=== PATIENT | male | born 1940 | race Caucasian/White ===

== ENCOUNTER → 2018-09-08 14:24 | Outpatient (CLI) | payer MEDICARE, SELFPAY ==
--- NOTE | 2018-09-08 14:41 | RAD_ITS ---
STUDY: X-RAY - ABDOMEN/PELVIS REASON FOR EXAM: Male, 78 years old. Incontinence TECHNIQUE: Two AP supine views of the abdomen and pelvis. COMPARISON: None. FINDINGS: Normal visualized lung bases. There is an unremarkable bowel gas pattern. There is no demonstrated free abdominal air. The visualized liver, spleen and kidneys are grossly normal in size and morphology. Normal soft tissue structures. There are diffuse degenerative changes of the visualized lumbar spine, and pelvis. RAD/Abdomen Single View IMPRESSION: No acute findings Electronically Signed: Evangelista Atkinson MD at 16:17 EST , Service support ,
[2018-09-08 15:43] LABS: Absolute Lymphocyte Count 1.81 X10^3/ul (0.83-4.51); Absolute Neutrophil Count 4.5 X10^3/uL (2.0-7.7); Basophil# 0.06 X10^3/uL; Basophil% 0.9 % (0-1); Eosinophil# 0.14 X10^3/uL; Hematocrit 44.2 % (40-54); Hemoglobin 14.7 g/dl (13.0-16.5); Lymphocyte # 1.81 X10^3/ul (4.0); Mean Corp Hgb Conc 33.3 g/gl (32-36); Mean Corpuscular Hgb 31.1 pg (27.0-32.0); Mean Corpuscular Volume 93.4 fL (80-94); Mean Platelet Vol. 9.5 fl (6.2-12.0); Monocyte# 0.39 X10^3/uL; Monocyte% 5.6 % (0-10); Neutrophil # 4.54 X10^3/uL (2.7-7.7); Neutrophil % 65.2 % (47-70); Platelet Count 264 K/mm3 (150-450); RBC Distribution Width CV 13.6 % (11.6-14.6); RBC Distribution Width SD 44.9 fl (35.1-43.9); Red Blood Count 4.73 M/mm3 (4.6-6.2)
[2018-09-08 15:52] LABS: POSITIVE COUNT NO; POSITIVE DIFFERENTIAL NO; POSITIVE MORPHOLOGY NO
[2018-09-08 16:03] LABS: ALB/GLOB Ratio 0.8 RATIO (0.9-2.4); AST(SGOT) 24 U/L (15-37); Alanine Aminotransfer ALT/SGPT 23 U/L (16-61); Albumin, Serum 3.3 g/dL (3.2-5.0); Alkaline Phosphatase 128 U/L (45-117); Anion Gap 8 (5-15); BUN 8 mg/dL (7-18); BUN/Creat Ratio 7.5 RATIO (10-20); Calcium,Total 8.4 mg/dL (8.5-10.1); Chloride 105 mmol/L (98-107); Creatinine, Serum 1.07 mg/dL (0.70-1.30); EST Glomerular Filtration Rate 71 mL/min (>60); Est Glom Filt Rate - Afr Amer 86 mL/min (>60); Globulin 4.3 g/dL (2.2-4.2); Glucose 84 mg/dL (74-106); Potassium 3.9 mmol/L (3.5-5.1); Protein, Total 7.6 g/dL (6.4-8.2); Sodium Level 141 mmol/L (136-145); Thyroid Stim Hormone (TSH) 3.64 uIU/mL (0.358-3.74)
== END ==
LOC: POLAB3 14:31 → RAD 14:40
PROVIDERS: Family Provider Family Medicine Geriatric Medicine; PCP Family Medicine Geriatric Medicine; Referring Provider Family Medicine Geriatric Medicine; Visit Provider Family Medicine Geriatric Medicine
DX: Z00.00 Encounter for general adult medical examination without abnormal findings (principal); R53.83 Other fatigue; R15.9 Full incontinence of feces
CPT/HCPCS: 36415; 74018; 80053; 84443; 85025

== ENCOUNTER 2018-12-04 08:41 | Inpatient (IN) | payer MEDICARE, SELFPAY ==
[2018-12-04] VITALS (7 sets, daily range): BP systolic 126–169; BP diastolic 68–98; PULSE 63–88; RESP 16–20; TEMP 36.4–37.4; O2SAT 95–99; BMI 24.1; BMI 23.0
--- NOTE | 2018-12-04 08:54 | RAD_ITS ---
STUDY: X-RAY CHEST REASON FOR EXAM: Male, 78 years old. Fall, hip fracture, preop TECHNIQUE: AP COMPARISON: None. FINDINGS: EKG leads project over the chest. Pulmonary underexpansion with prominent interstitial lung markings and central pulmonary vessels. No consolidating air space process. There is no demonstrated pleural abnormality. There is mild cardiac enlargement. Normal mediastinum and britta. Prominent central pulmonary vessels may be artifactual. There is atherosclerotic calcification of the aortic arch with tortuosity. No acute bony process. There is no demonstrated abnormality of the visualized soft tissue structures of the upper abdomen. RAD/Chest 1 View (Portable) IMPRESSION: 1. No airspace consolidation or pleural effusion. 2. Hypoinflation with mild basilar atelectasis. Vascular congestion versus artifact of portable technique/hypoinflation. Electronically Signed: German Montemayor MD at 10:11 EST , Service support ,
--- NOTE | 2018-12-04 08:55 | EKG12_ITS ---
Test Reason : FALL Blood Pressure : / mmHG Vent. Rate : 069 BPM Atrial Rate : 069 BPM P-R Int : 146 ms QRS Dur : 148 ms QT Int : 442 ms P-R-T Axes : 012 008 002 degrees QTc Int : 473 ms Normal sinus rhythm Right bundle branch block Cannot rule out Inferior infarct , age undetermined Abnormal ECG Confirmed by WES PINTO, NARGIS ([id number]), school photograph editor ANISHA TOVAR ([id number]) on 12/09/2018 9:06:53 AM Referred By: NABEEL Confirmed By:NARGIS HARVEY MD
--- NOTE | 2018-12-04 08:56 | RAD_ITS ---
STUDY: X-RAY - RIGHT HIP REASON FOR EXAM: Male, 78 years old. Fall today, right hip deformity TECHNIQUE: 2 views of the hip. AP pelvis COMPARISON: None. FINDINGS: There are atherosclerotic vascular calcifications. A displaced intertrochanteric fracture identified with approximately one shaft's width displacement anteriorly of the distal fragment in relation to the proximal fragment best seen on crosstable lateral view. There is varus deformity. Normal acetabulum. There is moderate articular joint space narrowing. The pelvic ring is intact without evidence of fracture. Degenerative changes of the left hip noted. There are also degenerative changes of the sacroiliac joints and lower lumbar spine. RAD/HIP, UNI W/ Pelvis 2-3 Views IMPRESSION: Right intratrochanteric fracture with displacement and varus deformity. Electronically Signed: German Montemayor MD at 10:13 EST , Service support ,
[2018-12-04 09:14] LABS: Absolute Lymphocyte Count 1.15 X10^3/ul (0.83-4.51); Absolute Neutrophil Count 8.7 X10^3/uL (2.0-7.7); Basophil# 0.02 X10^3/uL; Basophil% 0.2 % (0-1); Eosinophil# 0.03 X10^3/uL; Eosinophils% 0.3 % (0-5); Hematocrit 42.7 % (40-54); Hemoglobin 14.1 g/dl (13.0-16.5); Lymphocyte # 1.15 X10^3/ul (4.0); Mean Corpuscular Hgb 30.9 pg (27.0-32.0); Mean Corpuscular Volume 93.6 fL (80-94); Mean Platelet Vol. 9.1 fl (6.2-12.0); Monocyte# 0.48 X10^3/uL; Monocyte% 4.6 % (0-10); Neutrophil # 8.73 X10^3/uL (2.7-7.7); Neutrophil % 83.3 % (47-70); POSITIVE COUNT NO; POSITIVE DIFFERENTIAL NO; POSITIVE MORPHOLOGY NO; Platelet Count 222 K/mm3 (150-450); RBC Distribution Width CV 14.8 % (11.6-14.6); RBC Distribution Width SD 50.2 fl (35.1-43.9); Red Blood Count 4.56 M/mm3 (4.6-6.2); White Blood Count 10.5 K/mm3 (4.4-11.0)
[2018-12-04] MEDS: Ondansetron 4 MG/2 ML Vial IV (09:19)
[2018-12-04] MEDS: Morphine 4 MG/ML Syringe IV (09:19)
[2018-12-04 09:21] LABS: International Normalized Ratio 0.9; Prothrombin Time (Protime)PT. 12.6 SECONDS (11.7-14.9)
[2018-12-04 09:22] LABS: Partial Thromboplast Time 28.2 Seconds (24.1-36.2)
[2018-12-04 09:28] LABS: Anion Gap 10 (5-15); BUN 19 mg/dL (7-18); BUN/Creat Ratio 20.2 RATIO (10-20); Chloride 103 mmol/L (98-107); Creatinine, Serum 0.94 mg/dL (0.70-1.30); EST Glomerular Filtration Rate 83 mL/min (>60); Est Glom Filt Rate - Afr Amer 100 mL/min (>60); Estimated Creatinine Clearance 73.38 ml/min; Glucose 139 mg/dL (74-106); Potassium 4.3 mmol/L (3.5-5.1); Sodium Level 138 mmol/L (136-145)
--- NOTE | 2018-12-04 09:59 | ED.VISSUMM ---
- ER Visit Summary Date of Service: 12/04/18 Chief Complaint: Deformity right lower extremity History of Present Illness: The patient is a 78 M who has history of Alzheimer's dementia at nursing facility apparently fell. He is unable to contribute with regards to history. Physical exam is limited because of his dementia. He has no complaints. Physical Examination: Vital signs noted. Blood pressure is 169/78. He is not febrile nor is he hypoxic. Head is atraumatic normocephalic. Pupils are equal round reactive. Extraocular muscles are intact. TMs are pearly white with landmarks noted. Nares patent with no drainage. Posterior pharynx without erythema or exudate. Uvula is midline. There is no dysphonia or dysphasia. Trachea is midline. There is no stridor with auscultation of the neck. There is no pain palpation of the posterior neck. Heart is regular without murmur, gallop or rub. S1 and S2 are normal. Lungs are clear to auscultation with good movement of air bilaterally. Abdomen is soft nontender. There is no pain palpation of the pelvis. There is pain palpation over the right greater trochanteric region. Logrolling causes him to grimace and complain of pain. He has acrocyanosis of his toes right and left. DP pulses absent bilaterally. PT pulse is 1+ bilaterally. He is alert but not oriented. He moves all extremities with the exception of the right lower extremity. Test Results: CBC is unremarkable. BMP is remarkable for glucose 139. Coags normal. EKG revealed a sinus rhythm with a right bundle branch block. Chest x-ray portable view and treatment by me as chronic changes. 3 view x-ray of the right hip interpreted by me as intertrochanteric fracture. Emergency Department Course and Treatment: IV, n.p.o., pain medicine, radiologic imaging, appropriate blood work for preop clearance/stratification as well as EKG and chest x-ray Treatment Plan: Case discussed with orthopedist Dr. Joe Gaming. He has added him to the OR schedule for tomorrow. He requested admission to the hospitalist service. Disposition: Medical surgical unit Impression: Right intratrochanteric fracture secondary to fall Alzheimer's dementia with history of behavioral issues This note was generated with [employer] dictation software. It may contain incorrect words, spelling, and punctuation that were not noted in review of the chart prior to signing ED Disposition - Plan for ED Patient: Referrals: Patrick Clarke MD [Primary Care Provider] -
--- NOTE | 2018-12-04 10:03 | ED.DCSUM_ITS ---
- ER Visit Summary Date of Service: 12/04/18 Chief Complaint: Deformity right lower extremity History of Present Illness: The patient is a 78 M who has history of Alzheimer's dementia at nursing facility apparently fell. He is unable to contribute with regards to history. Physical exam is limited because of his dementia. He has no complaints. Physical Examination: Vital signs noted. Blood pressure is 169/78. He is not febrile nor is he hypoxic. Head is atraumatic normocephalic. Pupils are equal round reactive. Extraocular muscles are intact. TMs are pearly white with landmarks noted. Nares patent with no drainage. Posterior pharynx without erythema or exudate. Uvula is midline. There is no dysphonia or dysphasia. Trachea is midline. There is no stridor with auscultation of the neck. There is no pain palpation of the posterior neck. Heart is regular without murmur, gallop or rub. S1 and S2 are normal. Lungs are clear to auscultation with good movement of air bilaterally. Abdomen is soft nontender. There is no pain palpation of the pelvis. There is pain palpation over the right greater trochanteric region. Logrolling causes him to grimace and complain of pain. He has acrocyanosis of his toes right and left. DP pulses absent bilaterally. PT pulse is 1+ bilaterally. He is alert but not oriented. He moves all extremities with the exception of the right lower extremity. Test Results: CBC is unremarkable. BMP is remarkable for glucose 139. Coags normal. EKG revealed a sinus rhythm with a right bundle branch block. Chest x- ray portable view and treatment by me as chronic changes. 3 view x-ray of the right hip interpreted by me as intertrochanteric fracture. Emergency Department Course and Treatment: IV, n.p.o., pain medicine, radiologic imaging, appropriate blood work for preop clearance/stratification as well as EKG and chest x-ray Treatment Plan: Case discussed with orthopedist Dr. Joe Gaming. He has added him to the OR schedule for tomorrow. He requested admission to the hospitalist service. Disposition: Medical surgical unit Impression: Right intratrochanteric fracture secondary to fall Alzheimer's dementia with history of behavioral issues This note was generated with [employer] dictation software. It may contain incorrect words, spelling, and punctuation that were not noted in review of the chart prior to signing ED Disposition - Plan for ED Patient: Referrals: Patrick Clarke MD [Primary Care Provider] -
--- NOTE | 2018-12-04 11:18 | ED.RN ---
[facility] NURSE APPROACHES DESK AND STATES THAT PATIENT GRIMACES WHEN HE MOVES, DR. CLEMONS MADE AWARE.
--- NOTE | 2018-12-04 11:25 | HP.PCM_ITS ---
Problem List (1) Closed right hip fracture Status: Acute Qualifiers: Encounter type: initial encounter Qualified Code(s): S72.001A - Fracture of unspecified part of neck of right femur, initial encounter for closed fracture (2) Dementia Status: Acute Qualifiers: Dementia type: Alzheimer's disease Alzheimer's disease onset: late-onset Dementia behavioral disturbance: with behavioral disturbance Qualified Code(s): G30.1 - Alzheimer's disease with late onset; F02.81 - Dementia in other diseases classified elsewhere with behavioral disturbance (3) Hypertension Status: Chronic Qualifiers: Hypertension type: essential hypertension Qualified Code(s): I10 - Essential (primary) hypertension (4) Hyperlipemia Status: Acute Qualifiers: Hyperlipidemia type: unspecified Qualified Code(s): E78.5 - Hyperlipidemia, unspecified History of Present Illness Date of Admission: 12/04/18 Chief Complaint: right hip pain - today The patient is a 78 year old M advanced dementia, resident in [facility]. Patient is currently in the hospice program. He also has history of hypertension, hyperlipidemia. Patient had tried to get out of bed with assistance. He was found on the floor having fallen down. Patient is hard of hearing. He is able to read lips. At the time of being seen, he denied any pain. Review of systems was essentially negative. Also temperature of 97.6F, heart rate 65, blood pressure 169/70 respiratory rate of 16, SPO2 is 97% on room air. His admitting blood work showed RBC count of 10.5, hemoglobin 14.1, platelet 22, INR was 0.9, PTT 28.2, BMP was unremarkable. Chest x-ray on admission showed no airspace consolidation or pleural effusion, mild bibasilar atelectasis X-ray of the right hip showed right intertrochanteric fracture with displacement and varus deformity Past Medical History Past Medical History (Chronic Problems): Chronic Problems Hypertension (Chronic) Allergies No Known Allergies Allergy (Verified 12/04/18 08:42) Home Medications: Ambulatory Orders Medication Instructions Recorded Acetaminophen [Tylenol] 650 mg PO BID 12/04/18 Aspirin 81 mg PO DAILY 12/04/18 Dexamethasone 2 mg PO DAILY 12/04/18 Lorazepam [Ativan] 0.5 mg PO Q4H 12/04/18 Metoprolol Tartrate [Lopressor 25 mg PO BID 12/04/18 (Beta Arnie)] Psychiatric History: Anxiety, Depression Lives: Halfway Smoking Status: Never smoker Tobacco Use: Non-smoker Alcohol: None Drugs: None - *Family History Maternal History Items: No pertinent history Paternal History Items: No pertinent history Review of Systems Unable to obtain accurate/complete ROS d/t: Patient has advanced dementia; unable to ask questions appropriately VTE Information - Inpt Only VTE Present on Admission: No VTE Pharm Prophylaxis ordered?: Yes Patient Problems: Active and Suspected Problems Closed right hip fracture (Acute) Dementia (Acute) Hyperlipemia (Acute) - Physical Exam General: Alert, Oriented x3, Cooperative HEENT: Atraumatic, PERRLA, EOMI, Normocephalic Oral: Moist Mucosa Neck: Supple, No JVD, Negative Carotid Bruits Lungs: Clear to auscultation, Normal air movement Cardiovascular: Regular rate, Regular Rhythm, Normal S1, Normal S2, No murmurs Abdomen: Bowel Sounds Present, Soft, Non Tender, Non-Distended, No Hepato- splenomegaly Extremities: No edema Skin: No rashes, No breakdown Musculoskeletal: No Tenderness to Palpation of Joints or Extremities Lymphatic: No Cervical, Supraclavicular, or Inguinal Adenopathy Neurological: Cranial nerves II-XII grossly intact, Neuro grossly intact Psych/Mental Status: Normal Affect, Appropriate Vital Signs Temp Pulse Resp BP Pulse Ox 97.6 F L 63 20 H 133/78 H 99 12/04/18 08:42 12/04/18 11:04 12/04/18 11:04 12/04/18 11:04 12/04/18 11:04 Oxygen Delivery Method Room Air Weight: 80.7 kg Body Mass Index (BMI) 24.1 Laboratory Tests Past 24 Hrs 12/04/18 12/04/18 12/04/18 09:00 09:00 09:00 WBC 10.5 RBC 4.56 L Hgb 14.1 Hct 42.7 MCV 93.6 MCH 30.9 MCHC 33.0 RDW 14.8 H RDW Differential 50.2 H Plt Count 222 MPV 9.1 Immature Gran % (Auto) 0.600 Neut % (Auto) 83.3 H Lymph % (Auto) 11.0 L [place] % (Auto) 4.6 Eos % (Auto) 0.3 Baso % (Auto) 0.2 Absolute Neuts (auto) 8.7 H Absolute Lymphs (auto) 1.15 Total Counted Not Reportable PT 12.6 INR 0.9 APTT 28.2 Sodium 138 Potassium 4.3 Chloride 103 Carbon Dioxide 25.0 Anion Gap 10 BUN 19 H Creatinine 0.94 Estim Creat Clear Calc 73.38 Est GFR (MDRD) Af Amer 100 Est GFR (MDRD) Non-Af 83 BUN/Creatinine Ratio 20.2 H Glucose 139 H Calcium 9.0 Assessment/Plan All Active Problems Closed right hip fracture (Acute) Dementia (Acute) Hyperlipemia (Acute) 78 year old M advanced dementia, resident in [facility]. Patient is currently in the hospice program. He also has history of hypertension, hyperlipidemia. 1. Right intertrochanteric fracture, traumatic, status post fall, pain is controlled, Discussed with Dr. Gaming -patient will be going for surgery tomorrow patient s already in hospice for advanced Alzheimer's disease, the surgery would likely be for palliation. 2. Hypertension, controlled, continue metoprolol 3. Chronic steroid use, unclear etiology, continue on 2 mg dexamethasone 4. Alzheimer's dementia with behaviors, with urine and bowel incontinence, In hospice in detention will hold Ativan, add melatonin prn, monitor for delirium 5. DVT PPx- Heparin SC 6. Code status- DNRCC/Hospice Code Visit Inpatient E&M: 01911 Init Hosp L3
[2018-12-04] MEDS: Morphine 2 MG/ML Syringe IV (11:31)
--- NOTE | 2018-12-04 11:34 | CM.ED ---
Social Work Note Face to face with the and his son, Stevan. Introduced self and role at [facility]. The pt is asleep in his bed, but son is at bedside. Stevan reports that the pt has been at [facility] since the end of August. He does not have any specialists and follows with the PCP over [facility]. Meds would also be filled through the pharmacy contracted with [facility]. At this time the plan at discharge will be to return to [facility]. Steavn inquires about getting HCPOA. Explain that without the pt being alert and oriented we cannot complete that documentation, but he as the son would be the decision maker along with any other siblings. He inquires about having access to his bank accounts for Medicaid purposes, and discuss that this television script writer cannot make those calls to confirm what would be needed. Will pass along to on assigned unit. PLAN: Return to [facility] at discharge. MALIKA Serrano, JERAMY
[2018-12-04] MEDS: Acetaminophen 500 MG Tablet 1000 MG PO ×2 (13:40→21:03)
[2018-12-04] MEDS: 0.9% Normal Saline 1,000 ML 75 ML IV (13:40)
[2018-12-04] MEDS: oxyCODONE 5 MG Tablet PO (20:58)
[2018-12-04] MEDS: Heparin Injection (Vial) 5,000 UNIT/ML VIAL 5000 UNIT SC (21:03)
[2018-12-04] MEDS: Metoprolol Tartrate 25 MG Tablet PO (21:03)
[2018-12-05] VITALS (12 sets, daily range): BP systolic 93–143; BP diastolic 57–87; PULSE 83–115; RESP 16–20; TEMP 36.8–37.4; O2SAT 89–96; BMI 23.0
[2018-12-05] MEDS: 0.9% Normal Saline 1,000 ML 75 ML IV (03:06)
[2018-12-05 06:04] LABS: Absolute Lymphocyte Count 1.93 X10^3/ul (0.83-4.51); Absolute Neutrophil Count 8.6 X10^3/uL (2.0-7.7); Basophil# 0.06 X10^3/uL; Basophil% 0.5 % (0-1); Eosinophil# 0.07 X10^3/uL; Eosinophils% 0.6 % (0-5); Hematocrit 36.6 % (40-54); Hemoglobin 11.8 g/dl (13.0-16.5); Lymphocyte # 1.93 X10^3/ul (4.0); Lymphocyte % 16.6 % (19-41); Mean Corp Hgb Conc 32.2 g/gl (32-36); Mean Corpuscular Hgb 30.8 pg (27.0-32.0); Mean Corpuscular Volume 95.6 fL (80-94); Mean Platelet Vol. 9.1 fl (6.2-12.0); Monocyte# 0.92 X10^3/uL; Monocyte% 7.9 % (0-10); Neutrophil # 8.58 X10^3/uL (2.7-7.7); Neutrophil % 73.9 % (47-70); Platelet Count 242 K/mm3 (150-450); RBC Distribution Width CV 15.5 % (11.6-14.6); RBC Distribution Width SD 52.1 fl (35.1-43.9); Red Blood Count 3.83 M/mm3 (4.6-6.2); White Blood Count 11.6 K/mm3 (4.4-11.0)
[2018-12-05 06:22] LABS: Anion Gap 12 (5-15); BUN 20 mg/dL (7-18); BUN/Creat Ratio 23.7 RATIO (10-20); Calcium,Total 8.8 mg/dL (8.5-10.1); Chloride 107 mmol/L (98-107); Creatinine, Serum 0.84 mg/dL (0.70-1.30); EST Glomerular Filtration Rate 94 mL/min (>60); Est Glom Filt Rate - Afr Amer 113 mL/min (>60); Estimated Creatinine Clearance 81.38 ml/min; Glucose 115 mg/dL (74-106); Sodium Level 141 mmol/L (136-145)
[2018-12-05 06:26] LABS: POSITIVE COUNT NO; POSITIVE DIFFERENTIAL NO; POSITIVE MORPHOLOGY NO
--- NOTE | 2018-12-05 06:43 | PCM.CONS.GEN ---
Reason for Consult Date of Consultation: 12/05/18 Reason for Consultation: Right hip fracture. Requested by Dr. Freire History of Present Illness: The patient is a 78 year old M with severe advanced dementia who resides in a dementia unit at [facility] presents today with a right hip fracture. Patient is currently involved in hospice care and is only able to give limited history based on his mental status. Family has not by the bedside at this point, the majority of the history is obtained through previous documentation. Patient was getting out of bed with assistance yesterday when he fell. After the fall he was unable to put weight on his right side. He was brought to the emergency department where x-rays were obtained finding an intertrochanteric hip fracture on the right. Currently patient reports well-controlled pain. Denies any numbness or tingling distally or any other associated symptoms. Pain is relieved with immobilization made worse with motion. Past Medical History Past Medical History (Chronic Problems): Chronic Problems Hypertension (Chronic) Allergies No Known Allergies Allergy (Verified 12/04/18 08:42) Home Medications: Ambulatory Orders Medication Instructions Recorded Acetaminophen [Tylenol] 650 mg PO BID 12/04/18 Aspirin 81 mg PO DAILY 12/04/18 Dexamethasone 2 mg PO DAILY 12/04/18 Lorazepam [Ativan] 0.5 mg PO Q4H 12/04/18 Metoprolol Tartrate [Lopressor 25 mg PO BID 12/04/18 (Beta Arnie)] Psychiatric History: Anxiety, Depression Lives: Halfway Smoking Status: Never smoker Tobacco Use: Non-smoker Alcohol: None Drugs: None - *Family History Maternal History Items: No pertinent history Paternal History Items: No pertinent history Review of Systems Constitutional: Denies: Chills, Fever, Weight Change HEENT: Denies: Head Aches, Sinus Congestion, Sinus Drainage Cardiovascular: Denies: Chest Pain, Palpitations Respiratory: Denies: Cough, Shortness of breath at rest, Sputum production Gastrointestinal: Denies: Abdominal Pain, Nausea, Vomiting Genitourinary: Denies: Dysuria Musculoskeletal: Reports: Joint Pain, Joint Tenderness Skin: Denies: Rash, Wounds Neurological: Denies: Numbness, Tingling, Focal weakness Psychiatric: Denies: Anxiety, Depression, Homicidal Ideations, Suicidal Ideations Hematologic/ Lymphatic: Denies: Easy Bruising, Easy Bleeding Patient Problems: Active and Suspected Problems Closed right hip fracture (Acute) Dementia (Acute) Hyperlipemia (Acute) Objective: Right hip radiographs taken yesterday were reviewed showing a displaced shortened intratrochanteric hip fracture on the right. Chest x-ray shows no acute fractures or dislocations. - Physical Exam General: Alert, Cooperative, Confused HEENT: Atraumatic Abdomen: Non-Distended Extremities: - - Right lower extremity: Skin clean, dry, and intact. Limb is shortened and externally rotated Motor is intact dorsiflexion, EHL and plantar flexion. Sensation is intact to light touch saphenous, gregory,l superficial peroneal, deep peroneal and tibial distributions. Calves are soft and supple. Vital Signs Temp Pulse Resp BP Pulse Ox 98.8 F 83 16 143/75 H 93 12/05/18 03:00 12/05/18 03:00 12/05/18 03:00 12/05/18 03:00 12/05/18 03:00 Oxygen Delivery Method Room Air Weight: 169 lb 8.568 oz Body Mass Index (BMI) 23.0 Intake and Output for Last 24 Hours 12/03/18 12/04/18 12/05/18 23:59 23:59 23:59 Intake Total 1502 / 1502 Output Total 550 / 550 450 / 450 Balance -550 / -550 1052 / 1052 Laboratory Tests Past 24 Hrs 12/04/18 12/04/18 12/04/18 09:00 09:00 09:00 WBC 10.5 RBC 4.56 L Hgb 14.1 Hct 42.7 MCV 93.6 MCH 30.9 MCHC 33.0 RDW 14.8 H RDW Differential 50.2 H Plt Count 222 MPV 9.1 Immature Gran % (Auto) 0.600 Neut % (Auto) 83.3 H Lymph % (Auto) 11.0 L [place] % (Auto) 4.6 Eos % (Auto) 0.3 Baso % (Auto) 0.2 Absolute Neuts (auto) 8.7 H Absolute Lymphs (auto) 1.15 Total Counted Not Reportable PT 12.6 INR 0.9 APTT 28.2 Sodium 138 Potassium 4.3 Chloride 103 Carbon Dioxide 25.0 Anion Gap 10 BUN 19 H Creatinine 0.94 Estim Creat Clear Calc 73.38 Est GFR (MDRD) Af Amer 100 Est GFR (MDRD) Non-Af 83 BUN/Creatinine Ratio 20.2 H Glucose 139 H Calcium 9.0 Blood Type Antibody Screen 12/05/18 12/05/18 12/05/18 05:25 05:25 05:25 WBC 11.6 H RBC 3.83 L Hgb 11.8 L Hct 36.6 L MCV 95.6 H MCH 30.8 MCHC 32.2 RDW 15.5 H RDW Differential 52.1 H Plt Count 242 MPV 9.1 Immature Gran % (Auto) 0.500 Neut % (Auto) 73.9 H Lymph % (Auto) 16.6 L [place] % (Auto) 7.9 Eos % (Auto) 0.6 Baso % (Auto) 0.5 Absolute Neuts (auto) 8.6 H Absolute Lymphs (auto) 1.93 Total Counted Not Reportable PT INR APTT Sodium 141 Potassium 4.0 Chloride 107 Carbon Dioxide 22.0 Anion Gap 12 BUN 20 H Creatinine 0.84 Estim Creat Clear Calc 81.38 Est GFR (MDRD) Af Amer 113 Est GFR (MDRD) Non-Af 94 BUN/Creatinine Ratio 23.7 H Glucose 115 H Calcium 8.8 Blood Type O POSITIVE Antibody Screen NEGATIVE Assessment/Plan All Active Problems Closed right hip fracture (Acute) Dementia (Acute) Hyperlipemia (Acute) Right hip displaced intertrochanteric fracture. Patient has severe dementia to the best my ability I discussed natural history of the disease process and treatment options the patient. At this point I do recommend stabilization of the fracture with cephalo-medullary nail. This would be a palliative measure for this patient he is on hospice care and DNR CC however, not stabilizing the fracture would likely require prolonged bedrest and pain management make patient even more difficult to mobilize. Risks of the surgery to include blood loss, DVTs, PEs, neurovascular damage, infection, the risk of anesthesia including loss of life. We will attempt to identify medical power of real estate sales agent name and who could help make medical decisions prior to surgery. Plan is for surgery today. 2 g of Ancef have been ordered on-call to the operating room. Patient is n.p.o. [facility] Office:
--- NOTE | 2018-12-05 08:17 | PCM.PN.HOSP ---
Patient Problems: Active and Suspected Problems Closed right hip fracture (Acute) Dementia (Acute) Hyperlipemia (Acute) Subjective: Patient was seen and examined. Hard of hearing. No acute events overnight. Patient complains of pain, cannot tell me more than that. Vitals are stable. Objective: Physical Exam General: Alert, Oriented x3, Cooperative, not pale, not jaundiced HEENT: Atraumatic, PERRLA, EOMI, Normocephalic Oral: Moist Mucosa Neck: Supple, No JVD, Negative Carotid Bruits Lungs: Clear to auscultation, Normal air movement Cardiovascular: Regular rate, Regular Rhythm, Normal S1, Normal S2, No murmurs Abdomen: Bowel Sounds Present, Soft, Non Tender, Non-Distended, No Hepato-splenomegaly Extremities: No edema Skin: No rashes, No breakdown Musculoskeletal: Tenderness over the right hip, right lower extremity appears deformed. Lymphatic: No Cervical, Supraclavicular, or Inguinal Adenopathy Neurological: Cranial nerves II-XII grossly intact, Neuro grossly intact except he does not seem to move right upper extremity much. Psych/Mental Status: Normal Affect, Appropriate Vitals/I&O's: Vital Signs Temp Pulse Resp BP Pulse Ox 98.8 F 83 16 143/75 H 93 12/05/18 03:00 12/05/18 03:00 12/05/18 03:00 12/05/18 03:00 12/05/18 03:00 Oxygen Delivery Method Room Air Weight: 76.9 kg Body Mass Index (BMI) 23.0 Intake and Output for Last 24 Hours 12/03/18 12/04/18 12/05/18 23:59 23:59 23:59 Intake Total 1502 / 1502 Output Total 550 / 550 450 / 450 Balance -550 / -550 1052 / 1052 Laboratory Results 12/04/18 09:00: WBC 10.5, RBC 4.56 L, Hgb 14.1, Hct 42.7, MCV 93.6, MCH 30.9, MCHC 33.0, RDW 14.8 H, RDW Differential 50.2 H, Plt Count 222, MPV 9.1, Immature Gran % (Auto) 0.600, Neut % (Auto) 83.3 H, Lymph % (Auto) 11.0 L, Josephine % (Auto) 4.6, Eos % (Auto) 0.3, Baso % (Auto) 0.2, Absolute Neuts (auto) 8.7 H, Absolute Lymphs (auto) 1.15, Total Counted Not Reportable 12/04/18 09:00: PT 12.6, INR 0.9, APTT 28.2 12/04/18 09:00: Sodium 138, Potassium 4.3, Chloride 103, Carbon Dioxide 25.0, Anion Gap 10, BUN 19 H, Creatinine 0.94, Estim Creat Clear Calc 73.38, Est GFR (MDRD) Af Amer 100, Est GFR (MDRD) Non-Af 83, BUN/Creatinine Ratio 20.2 H, Glucose 139 H, Calcium 9.0 12/05/18 05:25: WBC 11.6 H, RBC 3.83 L, Hgb 11.8 L, Hct 36.6 L, MCV 95.6 H, MCH 30.8, MCHC 32.2, RDW 15.5 H, RDW Differential 52.1 H, Plt Count 242, MPV 9.1, Immature Gran % (Auto) 0.500, Neut % (Auto) 73.9 H, Lymph % (Auto) 16.6 L, Josephine % (Auto) 7.9, Eos % (Auto) 0.6, Baso % (Auto) 0.5, Absolute Neuts (auto) 8.6 H, Absolute Lymphs (auto) 1.93, Total Counted Not Reportable 12/05/18 05:25: Sodium 141, Potassium 4.0, Chloride 107, Carbon Dioxide 22.0, Anion Gap 12, BUN 20 H, Creatinine 0.84, Estim Creat Clear Calc 81.38, Est GFR (MDRD) Af Amer 113, Est GFR (MDRD) Non-Af 94, BUN/Creatinine Ratio 23.7 H, Glucose 115 H, Calcium 8.8 12/05/18 05:25: Blood Type O POSITIVE, Antibody Screen NEGATIVE Current Medications Acetaminophen (Tylenol) 1,000 mg PO Q8 [facility] Last Admin: 12/05/18 07:11 Dose: Not Given Aspirin (Aspirin, Baby) 81 mg PO DAILY@0800 [facility] Bisacodyl (Dulcolax) 5 mg PO DAILY PRN PRN PRN Reason: Constipation Dexamethasone (Decadron) 2 mg PO DAILYCM [facility] Heparin Sodium (Porcine) (Heparin Na) 5,000 unit SC Q12 [facility] Last Admin: 12/04/18 21:03 Dose: 5,000 unit Sodium Chloride () 1,000 mls @ 75 mls/hr IV .[id number] [facility] Stop: 12/05/18 15:44 Last Admin: 12/05/18 03:06 Dose: 75 mls/hr Magnesium Hydroxide (Milk Of Magnesia) 30 ml PO DAILY PRN PRN PRN Reason: Constipation Melatonin (Melatonin) 3 mg PO QHS PRN PRN Reason: INSOMNIA Metoprolol Tartrate (Lopressor (Beta Arnie)) 25 mg PO BID [facility] Last Admin: 12/04/18 21:03 Dose: 25 mg Oxycodone HCl (Oxyir) 5 mg PO Q4H PRN PRN PRN Reason: SEVERE PAIN (-08/03) Last Admin: 12/04/18 20:58 Dose: 5 mg Psyllium Hydrophilic Mucilloid (Metamucil) 1 packet PO DAILY PRN PRN PRN Reason: CONSTIPATION Senna/Docusate Sodium (Senokot-S, Leanna-Colace) 1 tablet PO DAILY PRN PRN PRN Reason: CONSTIPATION Medical Necessity - Tobacco Use Smoking Status: Never smoker Tobacco Use: Non-smoker Assessment/Plan All Active Problems Closed right hip fracture (Acute) Dementia (Acute) Hyperlipemia (Acute) 78 year old M advanced dementia, resident in [facility]. Patient is currently in the hospice program. He also has history of hypertension, hyperlipidemia. 1. Right intertrochanteric fracture, traumatic, status post fall, pain is fairly controlled, going for palliative surgery Will continue to monitor post-operatively 2. Hypertension, controlled, continue metoprolol 3. Chronic steroid use, unclear etiology, continue on 2 mg dexamethasone 4. Alzheimer's dementia with behaviors, with urine and bowel incontinence, [facility], Ativan on hold, on melatonin, will continue to monitor for delirium 5. DVT PPx- Heparin SC 6. Code status- DNRCC/Hospice 7. Disposition: DC back to Hospice in [facility] after this admission. Code Visit Inpatient E&M: 15894 Subs Hosp L2
--- NOTE | 2018-12-05 09:45 | CASEMGMT ---
Social Work Note SW reviewed previous notes. Pt seems to be in Alzheimer unit at [facility] with Hospice Care. SW placed a call to Celina at [facility] and left her a message to confirm this. SW waiting for call back. Plan: Return to [facility] once medically cleared Caity Landers BLENDER LABORER, SHAREPOINT ADMINISTRATOR
[2018-12-05] MEDS: Metoprolol Tartrate 25 MG Tablet PO (10:35)
[2018-12-05] MEDS: Morphine 2 MG/ML Syringe 1 MG IV (11:38)
--- NOTE | 2018-12-05 13:00 | CASEMGMT ---
Social Work Note POOJA met with pt's son Stevan and pt's daughter in law. Stevan confirms that pt is from terminal clerk [facility] in the dementia unit with Hospice and that the plan is for pt to return there. Stevan and pt's daughter in law states that Stevan is trying to get HCPOA over pt but the courts are taking forever and it is costing them a lot of money. POOJA offered support to Health. POOJA explained that since pt has severe dementia, and not alert or orientated, this worker is unable to complete advanced directives with pt. POOJA encouraged Stevan to continue to work with the courts to get HCPOA and/or guardianship for pt. Stevan states understanding. POOJA received call from Celina at [facility]. Celina confirms that pt is terminal clerk resident at [facility] in the dementia unit with Hospice and pt is able to return there at discharge. POOJA faxed updated clinicals to Celina at [facility]. Plan: Pt to return to [facility] terminal clerk in dementia unit with Hospice Caity Landers REBEAMER, SECONDARY TEACHER
--- NOTE | 2018-12-05 14:05 | RAD_ITS ---
STUDY: X-RAY - RIGHT SHOULDER REASON FOR EXAM: Male, 78 years old. Pain. Status post fall. TECHNIQUE: 2 view(s) of the shoulder. COMPARISON: None. FINDINGS: Normal glenohumeral articulation. Mild degenerative osteoarthrosis of the acromioclavicular joint. Normal acromion. Normal humeral head and visualized proximal humerus. The soft tissue structures are unremarkable. Normal visualized pulmonary apex. RAD/Shoulder min 2 Views IMPRESSION: No suspicious acute fracture or dislocation of the right shoulder. Electronically Signed: Mark Ohara MD at 15:34 EST , Service support ,
--- NOTE | 2018-12-05 14:13 | RAD_ITS ---
STUDY: X-RAY - RIGHT ELBOW REASON FOR EXAM: Male, 78 years old. Elbow pain. Status post fall. TECHNIQUE: 2 view(s) of the elbow. COMPARISON: None. FINDINGS: Normal visualized humerus. Osteophytic spurs and the radial head and olecranon process. Degenerative osteoarthrosis of the radiocapitellar and ulnotrochlear articulations. The fat pads are not displaced. RAD/Elbow 2 Views IMPRESSION: No suspicious acute fracture or dislocation of the right elbow. Electronically Signed: Mark Ohara MD at 15:36 EST , Service support ,
--- NOTE | 2018-12-05 14:21 | RAD_ITS ---
STUDY: X-RAY - RIGHT HUMERUS REASON FOR EXAM: Male, 78 years old. Pain. Status post fall. TECHNIQUE: 2 view(s) of the humerus. COMPARISON: None. FINDINGS: Normal visualized humerus. There is no demonstrated fracture or osseous destructive process. There is no demonstrated soft tissue abnormality. RAD/Humerus min 2 Views IMPRESSION: No acute fracture or dislocation of the right humerus. Electronically Signed: Mark Ohara MD at 15:34 EST , Service support ,
--- NOTE | 2018-12-05 14:29 | NURSING ---
report called to Luciana in [facility]. notified that consent has not been signed yet as family has not spoken with Dr Gaming. pt transported off unit via bed at this time
--- NOTE | 2018-12-05 15:05 | PCA ---
pt off floor
--- NOTE | 2018-12-05 15:07 | CHAPLAIN ---
Type of Pastoral Visit _x__ Initial Visit ___ Follow-up Visit ___ On-call Visit ___ General Patient Visit ___ Spiritual Assessment ___ Family Conference ___ Bereavement ___ Rapid Response ___ Code Blue ___ Other (describe below) Pastoral Care Referral From _x__ Patient ___ Family ___ Nurse ___ Physician ___ Balance Bridge Inspector ___ Trade Economist ___ Other (describe below) Sacrament/Intervention _x__ Active listening ___ Anointing ___ Methodist ___ Bereavement ___ Communion ___ Autumn exploration ___ ___ Life review _x__ Prayer ___ Reconciliation ___ Sacrament of Sick _x__ Supportive presence ___ Wedding ___ Other (describe below) Pastoral Comments a son and [id number] are with patient; pt says that he is fine and does not know why he is in hospital when asked by this fitness and wellness coordinator; family states that pt has had stroke and fell over weekend; pt is scheduled for surgery soon according to family; family states that pt has dementia; pt is slow to answer questions and appears hard of hearing; family welcomes prayer and visit for patient'
[2018-12-05] MEDS: Cefazolin 2 GM in 0.9% Normal Saline 100 ML IV (16:08)
--- NOTE | 2018-12-05 16:11 | RAD_ITS ---
STUDY: X-RAY - RIGHT HIP REASON FOR EXAM: Male, 78 years old. Intramedullary rodding of right femoral fracture TECHNIQUE: 5 views of the hip. COMPARISON: Previous study of earlier this date FINDINGS: Intraoperative views demonstrate status post ORIF of intertrochanteric fracture. A long stem intramedullary femoral rj is seen. The intertrochanteric fracture appears in good alignment. RAD/Hip Min 2 Views (Portable) IMPRESSION: Status post ORIF changes of intertrochanteric fracture of the right femur with long stem intramedullary femoral rj. The intertrochanteric fracture appears in excellent alignment. Electronically Signed: Kiran Pat MD at 22:04 EST , Service support ,
--- NOTE | 2018-12-05 16:16 | OP.PCM_ITS ---
Report of Operation Date of Procedure: 12/05/18 Pre-Operative Diagnosis: Right displaced intertrochanteric hip fracture Post-Operative Diagnosis: Right displaced intertrochanteric hip fracture Surgery/Procedure Performed:: Right hip cephalo-medullary nail Description of Surgical Findings:: Stable reduction highway painter: None Anesthesiologist: David Schmitz Special Medications: 2 g Ancef Estimated Blood Loss (mL): 200 Fluids Replaced: 800 mL crystalloid Description of Procedure: Components used: 1. [employer] InterTAN nail 42 cm x 11-1/2 mm, 125 degree neck angle 2. [employer] InterTAN lag screw 95mm Brief history operative indications: 78-year-old male with severe dementia. Patient requires assist normally. While they were assisting him to ambulate he fell sustained a right intertrochanteric hip fracture. After extensive discussion including risk and benefits which include but are not limited to blood loss, PEs, DVTs, neurovascular damage, nonunions, malunions and screw cut out power of automotive buyer has elected to proceed with a right cephalo-medullary nail. Procedure: On the date of the procedure the patient's R hip was marked in the preoperative area and patient was taken back to the operating room. Anesthetic was administered and patient was transferred to the table were all bony prominence identified well-padded and the ipsilateral arm was placed across the chest. Patient was then translated down to the perineal post and the operative leg was placed in the boot while the nonoperative leg was lowered and secured. The operative leg was placed in traction and internal rotation and live fluoroscopy was used to verify adequate reduction. The operative leg was then prepped in a sterile fashion with chlorhexidine while the surgeon scrubbed. Upon reentering the room the operative extremity was draped in the standard orthopedic fashion. Skin incision was marked and a timeout was called. Everyone agreed upon the side, the site, the procedure be performed, patient's identity, and antibiotics given. Skin incision was made and the position of the entry guidepin was verified using live fluoroscopy. Once we were satisfied with our position the pin was advanced in the soft tissue protector was placed over the pin. The entry reamer was then advanced into the proximal portion of the femur. A guidewire was placed down the intramedullary canal and fluoroscopy was used to verify that the anterior cortex had not been breached distally as well as satisfactory distal positioning. We then used live fluoroscopy to verify the length of the nail and a [employer] InterTAN 125 degree 42 cm by 10 mm hip nail was selected. The 13 mm reamer was then passed. The nail was then attached to the advertising inserter and inserted into the intramedullary canal. The appropriate depth was verified and the skin incision for the lag screw was made. The lag screw guidepin was then placed under live fluoroscopy and when a satisfactory position was obtained the length of the screw was measured and the standard technique to drill for the lag screws was performed. The anti-rotation bar was used. At this time a 95MM lag screw was selected with its corresponding compression screw. The lag screw was then passed and traction was left off the leg. The compression screw was then passed and the fracture was compressed. The final position of the lag screw was verified under fluoroscopy. The set screw was then tightened down and left tightened for rigid construct. Once we were satisfied with our positioning the wounds were copiously irrigated out with normal saline skin was closed with 2-0 Vicryl and sidney for final skin closure. A sterile dressing was placed with Xeroform. Patient was then awakened by anesthesia transferred from the fracture table back to their hospital bed and transferred to the PACU for recovery. Postoperative plan: Patient will be weight-bear as tolerated. Aspirin 325 mg twice a day for DVT prophylaxis with knee-high stockings. Follow up in the office in 2 weeks. Grafts/Implants Used: [employer] InterTAN - Complications No intraoperative complications - Admit VTE Documentation VTE Present on Admission: No VTE Mechan Device Prophylaxis: SCD's, Thigh High CONSTANTINO Hose VTE Pharm Prophylaxis ordered?: Yes
--- NOTE | 2018-12-05 16:56 | PCA ---
PT OFF FLOOR
--- NOTE | 2018-12-05 17:34 | RAD_ITS ---
STUDY: X-RAY -right hip and pelvis 4 views REASON FOR EXAM: Male, 78 years old. Status post ORIF intertrochanteric fracture right hip TECHNIQUE: 4 views of the right femur, hip, and pelvis COMPARISON: Prior study of December 04, 2018 FINDINGS: Status post ORIF changes of previously noted right intertrochanteric fracture are noted with fracture appearing in adequate alignment. A long stem femoral intramedullary rj component is seen. There are mild degenerative changes of the left and right hips. The bony pelvis is intact with no evidence of fracture. RAD/Hip Min 2 Views (Portable) IMPRESSION: Status post ORIF changes of previously noted right intertrochanteric fracture with long stem femoral component. The intertrochanteric fracture appears in adequate alignment. There are mild degenerative changes of the left and right hips. The bony pelvis is intact. A small amount of soft tissue gas is noted in the lateral proximal thigh compatible with history of recent surgery. Electronically Signed: Kiran Pat MD at 22:07 EST , Service support ,
[2018-12-05] MEDS: Lactated Ringers 1,000 ML 75 ML IV (22:31)
[2018-12-05] MEDS: Acetaminophen 500 MG Tablet 1000 MG PO (22:32)
[2018-12-06] VITALS (9 sets, daily range): BP systolic 101–135; BP diastolic 52–85; PULSE 97–107; RESP 16–20; TEMP 36.5–37.5; O2SAT 92–95
[2018-12-06] MEDS: Cefazolin 1 GM/50 ML BAG IV ×2 (00:19→08:38)
[2018-12-06 00:44] LABS: Bedside Glucose 167 mg/dL (70-110)
[2018-12-06] MEDS: Rivaroxaban 10 MG Tablet PO (05:56)
[2018-12-06] MEDS: Acetaminophen 500 MG Tablet 1000 MG PO ×3 (05:57→21:16)
[2018-12-06 06:09] LABS: Absolute Lymphocyte Count 1.27 X10^3/ul (0.83-4.51); Absolute Neutrophil Count 11.2 X10^3/uL (2.0-7.7); Basophil# 0.01 X10^3/uL; Basophil% 0.1 % (0-1); Hematocrit 27.5 % (40-54); Hemoglobin 9.1 g/dl (13.0-16.5); Lymphocyte # 1.27 X10^3/ul (4.0); Lymphocyte % 9.4 % (19-41); Mean Corp Hgb Conc 33.1 g/gl (32-36); Mean Corpuscular Hgb 31.6 pg (27.0-32.0); Mean Corpuscular Volume 95.5 fL (80-94); Mean Platelet Vol. 8.9 fl (6.2-12.0); Monocyte# 0.95 X10^3/uL; Neutrophil # 11.24 X10^3/uL (2.7-7.7); Neutrophil % 83.1 % (47-70); POSITIVE COUNT NO; POSITIVE DIFFERENTIAL NO; POSITIVE MORPHOLOGY NO; Platelet Count 237 K/mm3 (150-450); RBC Distribution Width CV 15.3 % (11.6-14.6); RBC Distribution Width SD 50.8 fl (35.1-43.9); Red Blood Count 2.88 M/mm3 (4.6-6.2); White Blood Count 13.5 K/mm3 (4.4-11.0)
[2018-12-06 06:29] LABS: Anion Gap 12 (5-15); BUN 28 mg/dL (7-18); BUN/Creat Ratio 25.5 RATIO (10-20); Calcium,Total 8.2 mg/dL (8.5-10.1); Chloride 108 mmol/L (98-107); EST Glomerular Filtration Rate 69 mL/min (>60); Est Glom Filt Rate - Afr Amer 84 mL/min (>60); Estimated Creatinine Clearance 62.14 ml/min; Glucose 159 mg/dL (74-106); Potassium 4.5 mmol/L (3.5-5.1); Sodium Level 140 mmol/L (136-145)
--- NOTE | 2018-12-06 07:08 | PCM.PN.ORT ---
Patient Problems: Active and Suspected Problems Closed right hip fracture (Acute) Dementia (Acute) Hyperlipemia (Acute) Subjective: The patient was sitting in bed upon examination. Patient has advanced dementia and is alert. Patient denies any chest pain, shortness of breath, dizziness, lightheadedness, nausea or vomiting, or calf pain. Pain is controlled on medications. No adverse overnight events. All of patient's answers are no. Patient appears to be in no acute distress with regards to his right hip. Patient is a resident at [facility] currently in the hospice program. Objective: Vital signs stable and afebrile. Patient has had some low blood pressure readings as well as tachycardia. Patient currently states he has no chest pain or shortness of breath. Patient is able to plantarflex and dorsiflex actively. Sensation is intact to light touch to saphenous, sural, superficial and deep peroneal, and tibial distribution. Dressing is clean dry and intact. Negative Homans bilaterally, negative signs and symptoms of DVT. - Physical Exam General: Alert, No apparent distress Vital Signs Temp Pulse Resp BP Pulse Ox 97.7 F L 99 20 H 111/66 95 12/06/18 02:05 12/06/18 02:05 12/06/18 02:05 12/06/18 02:05 12/06/18 02:05 Oxygen Flow Rate (L/min) 2 Oxygen Delivery Method Nasal Cannula Weight: 76.9 kg Body Mass Index (BMI) 23.0 Intake and Output for Last 24 Hours 12/04/18 12/05/18 12/06/18 23:59 23:59 23:59 Intake Total 3234 / 3234 1685 / 1685 Output Total 550 / 550 900 / 900 335 / 335 Balance -550 / -550 2334 / 2334 1350 / 1350 Laboratory Tests Past 24 Hrs 12/06/18 12/06/18 05:56 05:56 WBC 13.5 H RBC 2.88 L Hgb 9.1 L Hct 27.5 L MCV 95.5 H MCH 31.6 MCHC 33.1 RDW 15.3 H RDW Differential 50.8 H Plt Count 237 MPV 8.9 Immature Gran % (Auto) 0.400 Neut % (Auto) 83.1 H Lymph % (Auto) 9.4 L [place] % (Auto) 7.0 Eos % (Auto) 0.0 Baso % (Auto) 0.1 Absolute Neuts (auto) 11.2 H Absolute Lymphs (auto) 1.27 Total Counted Not Reportable Sodium 140 Potassium 4.5 Chloride 108 H Carbon Dioxide 20.0 L Anion Gap 12 BUN 28 H Creatinine 1.10 Estim Creat Clear Calc 62.14 Est GFR (MDRD) Af Amer 84 Est GFR (MDRD) Non-Af 69 BUN/Creatinine Ratio 25.5 H Glucose 159 H Calcium 8.2 L POC Glucose 12/06/18 00:40 POC Glucose 167 H Medical Necessity - Tobacco Use Smoking Status: Never smoker Tobacco Use: Non-smoker Assessment/Plan All Active Problems Closed right hip fracture (Acute) Dementia (Acute) Hyperlipemia (Acute) 1. S/P right hip cephalo-medullary nail POD #1 2. Continue Pain Medications: Tylenol and OxyIR 3. DVT Prophylaxis: Patient currently on Xarelto and recommend for 2 weeks postoperatively, then switch over to 81 mg aspirin twice daily for an additional 2 weeks. 4. PT/OT: Weightbearing as tolerated 5. H & H: 9.1/27.5, asymptomatic 6. Encouraged Incentive Spirometry 7. Continue postoperative medical management per medicine 8. Disposition: Patient is a long-term resident at [facility] [place] in the dementia unit with hospice. Plan will be for discharge back to [facility] [place] when medically stable. Patient will require 2-week follow-up with Dr. Joe Gaming at [facility] [place]. Continue with pain medications above. Continue his Xarelto times 2 weeks postoperatively then switch over to 81 mg aspirin twice daily for an additional 2 weeks for DVT prophylaxis. Continue with physical therapy and can be weightbearing as tolerated.
--- NOTE | 2018-12-06 07:15 | PN.ORTHO_ITS ---
Patient Problems: Active and Suspected Problems Closed right hip fracture (Acute) Dementia (Acute) Hyperlipemia (Acute) Subjective: The patient was sitting in bed upon examination. Patient has advanced dementia and is alert. Patient denies any chest pain, shortness of breath, dizziness, lightheadedness, nausea or vomiting, or calf pain. Pain is controlled on medications. No adverse overnight events. All of patient's answers are no. Patient appears to be in no acute distress with regards to his right hip. Patient is a resident at [facility] currently in the hospice program. Objective: Vital signs stable and afebrile. Patient has had some low blood pressure readings as well as tachycardia. Patient currently states he has no chest pain or shortness of breath. Patient is able to plantarflex and dorsiflex actively. Sensation is intact to light touch to saphenous, sural, superficial and deep peroneal, and tibial distribution. Dressing is clean dry and intact. Negative Homans bilaterally, negative signs and symptoms of DVT. - Physical Exam General: Alert, No apparent distress Vital Signs Temp Pulse Resp BP Pulse Ox 97.7 F L 99 20 H 111/66 95 12/06/18 02:05 12/06/18 02:05 12/06/18 02:05 12/06/18 02:05 12/06/18 02:05 Oxygen Flow Rate (L/min) 2 Oxygen Delivery Method Nasal Cannula Weight: 76.9 kg Body Mass Index (BMI) 23.0 Intake and Output for Last 24 Hours 12/04/18 12/05/18 12/06/18 23:59 23:59 23:59 Intake Total 3234 / 3234 1685 / 1685 Output Total 550 / 550 900 / 900 335 / 335 Balance -550 / -550 2334 / 2334 1350 / 1350 Laboratory Tests Past 24 Hrs 12/06/18 12/06/18 05:56 05:56 WBC 13.5 H RBC 2.88 L Hgb 9.1 L Hct 27.5 L MCV 95.5 H MCH 31.6 MCHC 33.1 RDW 15.3 H RDW Differential 50.8 H Plt Count 237 MPV 8.9 Immature Gran % (Auto) 0.400 Neut % (Auto) 83.1 H Lymph % (Auto) 9.4 L [place] % (Auto) 7.0 Eos % (Auto) 0.0 Baso % (Auto) 0.1 Absolute Neuts (auto) 11.2 H Absolute Lymphs (auto) 1.27 Total Counted Not Reportable Sodium 140 Potassium 4.5 Chloride 108 H Carbon Dioxide 20.0 L Anion Gap 12 BUN 28 H Creatinine 1.10 Estim Creat Clear Calc 62.14 Est GFR (MDRD) Af Amer 84 Est GFR (MDRD) Non-Af 69 BUN/Creatinine Ratio 25.5 H Glucose 159 H Calcium 8.2 L POC Glucose 12/06/18 00:40 POC Glucose 167 H Medical Necessity - Tobacco Use Smoking Status: Never smoker Tobacco Use: Non-smoker Assessment/Plan All Active Problems Closed right hip fracture (Acute) Dementia (Acute) Hyperlipemia (Acute) 1. S/P right hip cephalo-medullary nail POD #1 2. Continue Pain Medications: Tylenol and OxyIR 3. DVT Prophylaxis: Patient currently on Xarelto and recommend for 2 weeks postoperatively, then switch over to 81 mg aspirin twice daily for an additional 2 weeks. 4. PT/OT: Weightbearing as tolerated 5. H & H: 9.1/27.5, asymptomatic 6. Encouraged Incentive Spirometry 7. Continue postoperative medical management per medicine 8. Disposition: Patient is a long-term resident at [facility] in the dementia unit with hospice. Plan will be for discharge back to [facility] when medically stable. Patient will require 2-week follow-up with Dr. Joe Gaming at [facility] [place]. Continue with pain medications above. Continue his Xarelto times 2 weeks postoperatively then switch over to 81 mg aspirin twice daily for an additional 2 weeks for DVT prophylaxis. Continue with physical therapy and can be weightbearing as tolerated.
--- NOTE | 2018-12-06 07:35 | PCM.PROGNOTE ---
Patient Problems: Active and Suspected Problems Closed right hip fracture (Acute) Dementia (Acute) Hyperlipemia (Acute) Subjective: The patient is a 78-year-old male with a past medical history of dementia, hypertension, chronic steroid use on dexamethasone 2 mg daily and hyperlipidemia who presented to the emergency room on 12/04/2018 after a fall from bed at the custodial he resides in. X-ray of the right hip and pelvis showed a right intertrochanteric fracture with displacement and varus deformity. X-rays of the right elbow, right humerus and right shoulder showed no fracture or dislocation. He was admitted to the hospital and Dr. Gaming was consulted for hip fracture. He was taken to surgery on 12/05/2018 and a right hip cephalo-?medullary nail was placed. Postoperative day #1 All events the past 24 hours of been reviewed Afebrile since admission Vital signs are stable. He is 95% on a 2 L nasal cannula. Fluid balance is +3134 since admission. All lab was personally reviewed. White blood cell count today is 13.5 with 83% neutrophils. Hemoglobin is 9.1 and platelets are within normal limits. Serum bicarb is low at 20 today and the chloride is elevated at 108. BUN is 28 with a creatinine of 1.1. Fasting blood sugars have been elevated. [facility] He states his pain is controlled. He is feeding himself lunch at the time of my visit. Denies N/V/cough/SOB/chest pain. No complaints - Physical Exam General: Alert, Cooperative, Disoriented HEENT: Atraumatic, PERRLA, Normocephalic Oral: Moist Mucosa Neck: Supple, Negative Carotid Bruits, No Nodes, No Nuchal Rigidity Lungs: Clear to auscultation Cardiovascular: Regular rate, Regular Rhythm, Normal S1, Normal S2, No murmurs, No Gallop Abdomen: Bowel Sounds Present, Soft, Non Tender, Non-Distended Extremities: No clubbing, No cyanosis, No edema, Diminished Peripheral Pulses Skin: No rashes, No breakdown, - - the dressing is dry and has no blood on it Neurological: - - RUE is flacid and the RLE has suspected foot drop......difficult to examine because he does not consistently follow commands Psych/Mental Status: - - confused......answers yes or no to most questions and does not elaborate. Does not consistently follow commands Vital Signs Temp Pulse Resp BP Pulse Ox 97.7 F L 99 20 H 111/66 95 12/06/18 02:05 12/06/18 02:05 12/06/18 02:05 12/06/18 02:05 12/06/18 02:05 Oxygen Flow Rate (L/min) 2 Oxygen Delivery Method Nasal Cannula Weight: 169 lb 8.568 oz Body Mass Index (BMI) 23.0 Intake and Output for Last 24 Hours 12/04/18 12/05/18 12/06/18 23:59 23:59 23:59 Intake Total 3234 / 3234 1685 / 1685 Output Total 550 / 550 900 / 900 335 / 335 Balance -550 / -550 2334 / 2334 1350 / 1350 Laboratory Tests Past 24 Hrs 12/06/18 12/06/18 05:56 05:56 WBC 13.5 H RBC 2.88 L Hgb 9.1 L Hct 27.5 L MCV 95.5 H MCH 31.6 MCHC 33.1 RDW 15.3 H RDW Differential 50.8 H Plt Count 237 MPV 8.9 Immature Gran % (Auto) 0.400 Neut % (Auto) 83.1 H Lymph % (Auto) 9.4 L [place] % (Auto) 7.0 Eos % (Auto) 0.0 Baso % (Auto) 0.1 Absolute Neuts (auto) 11.2 H Absolute Lymphs (auto) 1.27 Total Counted Not Reportable Sodium 140 Potassium 4.5 Chloride 108 H Carbon Dioxide 20.0 L Anion Gap 12 BUN 28 H Creatinine 1.10 Estim Creat Clear Calc 62.14 Est GFR (MDRD) Af Amer 84 Est GFR (MDRD) Non-Af 69 BUN/Creatinine Ratio 25.5 H Glucose 159 H Calcium 8.2 L POC Glucose 12/06/18 00:40 POC Glucose 167 H Medical Necessity - Tobacco Use Smoking Status: Never smoker Tobacco Use: Non-smoker Assessment/Plan All Active Problems Closed right hip fracture (Acute) Dementia (Acute) Hyperlipemia (Acute) Impressions 1. R hip fx due to a fall - S/P repair by Dr. Gaming 2. [facility] 3. Flaccid RUE - CVA in the past? 4. chronic steroid use - why? may be due to adrenal insufficiency 5. HTN 6. Hyperglycemia with no dx of DM II -may be due to the dexamethasone Check hemoglobin A1c, magnesium, phosphorus, liver panel Discontinue IV fluids Continue Xarelto 10 mg daily for DVT prophylaxis Hemoccult stool Continue Tylenol 1 g p.o. every 8 hours for pain relief - has not been requiring anything but Tylenol for pain since yesterday morning Recheck CBC in the a.m. Code Visit Inpatient E&M: 44260 Subs Hosp L2
--- NOTE | 2018-12-06 07:43 | PN_ITS ---
Patient Problems: Active and Suspected Problems Closed right hip fracture (Acute) Dementia (Acute) Hyperlipemia (Acute) Subjective: The patient is a 78-year-old male with a past medical history of dementia, hypertension, chronic steroid use on dexamethasone 2 mg daily and hyperlipidemia who presented to the emergency room on 12/04/2018 after a fall from bed at the alf he resides in. X-ray of the right hip and pelvis showed a right intertrochanteric fracture with displacement and varus deformity. X-rays of the right elbow, right humerus and right shoulder showed no fracture or dislocation. He was admitted to the hospital and Dr. Gaming was consulted for hip fracture. He was taken to surgery on 12/05/2018 and a right hip cephalo-?medullary nail was placed. Postoperative day #1 All events the past 24 hours of been reviewed Afebrile since admission Vital signs are stable. He is 95% on a 2 L nasal cannula. Fluid balance is +3134 since admission. All lab was personally reviewed. White blood cell count today is 13.5 with 83% neutrophils. Hemoglobin is 9.1 and platelets are within normal limits. Serum bicarb is low at 20 today and the chloride is elevated at 108. BUN is 28 with a creatinine of 1.1. Fasting blood sugars have been elevated. He is on Dexamethasone 2 mg daily in the [place]. He states his pain is controlled. He is feeding himself lunch at the time of my visit. Denies N/V/cough/SOB/chest pain. No complaints - Physical Exam General: Alert, Cooperative, Disoriented HEENT: Atraumatic, PERRLA, Normocephalic Oral: Moist Mucosa Neck: Supple, Negative Carotid Bruits, No Nodes, No Nuchal Rigidity Lungs: Clear to auscultation Cardiovascular: Regular rate, Regular Rhythm, Normal S1, Normal S2, No murmurs, No Gallop Abdomen: Bowel Sounds Present, Soft, Non Tender, Non-Distended Extremities: No clubbing, No cyanosis, No edema, Diminished Peripheral Pulses Skin: No rashes, No breakdown, - - the dressing is dry and has no blood on it Neurological: - - RUE is flacid and the RLE has suspected foot drop......difficult to examine because he does not consistently follow commands Psych/Mental Status: - - confused......answers yes or no to most questions and does not elaborate. Does not consistently follow commands Vital Signs Temp Pulse Resp BP Pulse Ox 97.7 F L 99 20 H 111/66 95 12/06/18 02:05 12/06/18 02:05 12/06/18 02:05 12/06/18 02:05 12/06/18 02:05 Oxygen Flow Rate (L/min) 2 Oxygen Delivery Method Nasal Cannula Weight: 169 lb 8.568 oz Body Mass Index (BMI) 23.0 Intake and Output for Last 24 Hours 12/04/18 12/05/18 12/06/18 23:59 23:59 23:59 Intake Total 3234 / 3234 1685 / 1685 Output Total 550 / 550 900 / 900 335 / 335 Balance -550 / -550 2334 / 2334 1350 / 1350 Laboratory Tests Past 24 Hrs 12/06/18 12/06/18 05:56 05:56 WBC 13.5 H RBC 2.88 L Hgb 9.1 L Hct 27.5 L MCV 95.5 H MCH 31.6 MCHC 33.1 RDW 15.3 H RDW Differential 50.8 H Plt Count 237 MPV 8.9 Immature Gran % (Auto) 0.400 Neut % (Auto) 83.1 H Lymph % (Auto) 9.4 L [place] % (Auto) 7.0 Eos % (Auto) 0.0 Baso % (Auto) 0.1 Absolute Neuts (auto) 11.2 H Absolute Lymphs (auto) 1.27 Total Counted Not Reportable Sodium 140 Potassium 4.5 Chloride 108 H Carbon Dioxide 20.0 L Anion Gap 12 BUN 28 H Creatinine 1.10 Estim Creat Clear Calc 62.14 Est GFR (MDRD) Af Amer 84 Est GFR (MDRD) Non-Af 69 BUN/Creatinine Ratio 25.5 H Glucose 159 H Calcium 8.2 L POC Glucose 12/06/18 00:40 POC Glucose 167 H Medical Necessity - Tobacco Use Smoking Status: Never smoker Tobacco Use: Non-smoker Assessment/Plan All Active Problems Closed right hip fracture (Acute) Dementia (Acute) Hyperlipemia (Acute) Impressions 1. R hip fx due to a fall - S/P repair by Dr. Gaming 2. dementia - [facility] 3. Flaccid RUE - CVA in the past? 4. chronic steroid use - why? may be due to adrenal insufficiency 5. HTN 6. Hyperglycemia with no dx of DM II -may be due to the dexamethasone Check hemoglobin A1c, magnesium, phosphorus, liver panel Discontinue IV fluids Continue Xarelto 10 mg daily for DVT prophylaxis Hemoccult stool Continue Tylenol 1 g p.o. every 8 hours for pain relief - has not been requiring anything but Tylenol for pain since yesterday morning Recheck CBC in the a.m. Code Visit Inpatient E&M: 40078 Subs Hosp L2
[2018-12-06] MEDS: Aspirin 81 MG TAB.CHEW PO (08:38)
[2018-12-06 09:03] LABS: AST(SGOT) 23 U/L (15-37); Alanine Aminotransfer ALT/SGPT 29 U/L (16-61); Albumin, Serum 2.5 g/dL (3.2-5.0); Alkaline Phosphatase 61 U/L (45-117); Bilirubin, Direct 0.34 mg/dL (0.00-0.30); Globulin 3.3 g/dL (2.2-4.2); Magnesium 2.1 mg/dL (1.6-2.6); Phosphorus 4.3 mg/dL (2.5-4.9); Protein, Total 5.8 g/dL (6.4-8.2)
[2018-12-06] MEDS: oxyCODONE 5 MG Tablet PO (09:52)
[2018-12-06] MEDS: Metoprolol Tartrate 25 MG Tablet PO ×2 (09:54→21:16)
[2018-12-06 11:28] LABS: Hemoglobin A1c 5.1 % (4.2-6.3)
--- NOTE | 2018-12-06 11:39 | CT_ITS ---
STUDY: CT BRAIN WITHOUT CONTRAST REASON FOR EXAM: Male, 78 years old. Flaccidity of the right upper extremity. Recent hip surgery. RADIATION DOSAGE (If Supplied By Facility): CTDIvol = ( 44.99 ) mGy, DLP = ( 762.36 ) mGycm TECHNIQUE: Transaxial CT imaging of the brain was performed without administration of intravenous contrast material. Individualized dose optimization techniques were used for this CT. COMPARISON: None. FINDINGS: Normal soft tissue structures. Normal calvarium. There is moderate cerebral atrophy with widening of the extra-axial spaces and ventricular dilatation. There are areas of decreased attenuation within the white matter tracts of the supratentorial brain, consistent with microvascular disease changes. There is a 6.1 mm lucency in the deep white matter of the left parietal lobe suggestive of an old lacunar infarct. Normal basal ganglia and thalami. Normal brainstem. Normal cerebellum. There is no intracranial hemorrhage. There are no findings of an acute ischemic infarction. Atherosclerotic calcification of the vertebral arteries and the cavernous portions of the internal carotid arteries bilaterally. Normal visualized paranasal sinuses. CT/Brain/Head without Contrast IMPRESSION: Chronic involutional changes of the brain. Electronically Signed: Wiley Mendoza MD at 13:32 EST , Service support ,
--- NOTE | 2018-12-06 12:13 | CASEMGMT ---
Social Work Note POOJA placed a call to [facility] and spoke with Rubi. Rubi confirms that pt was active with Hospice Services and they are able to resume services once pt returns to [facility]. Rubi states she will contact pt's family to arrange resumption of Hospice Services. POOJA faxed updated clinicals to Rubi. Plan: Return to [facility] local intermodal truck driver in dementia unit with Hospice Caity Landers GLOBAL RISK MANAGEMENT DIRECTOR, TRAFFIC WORKER
[2018-12-06] MEDS: 0.9% NaCl Peripheral Flush Adult/Peds IV (13:32)
[2018-12-06] MEDS: Lactated Ringers 1,000 ML 75 ML IV (13:32)
--- NOTE | 2018-12-06 15:07 | CASEMGMT ---
Social Work Note Per Physician pt is not medically cleared for discharge today, likely tomorrow. POOJA placed a call to [facility] and spoke with Chhaya and updated her on this. Chhaya states that pt's baseline at [facility] was one assist with right sided weakness. POOJA explained that this worker spoke with pt's son yesterday and they would like pt to return to [facility] with Hospice. POOJA informed Chhaya that PT/OT worked with pt today and pt couldn't even take a step. Plan: Pt to return to [facility] once medically cleared with Hospice Caity Landers ICHTHYOLOGIST, BULLET CASTING OPERATOR
[2018-12-07] VITALS (16 sets, daily range): BP systolic 106–149; BP diastolic 62–85; PULSE 89–97; RESP 16–22; TEMP 36.5–37.3; O2SAT 89–97
[2018-12-07] MEDS: Lactated Ringers 1,000 ML 75 ML IV (03:26)
[2018-12-07 06:30] LABS: Hematocrit 21.3 % (40-54); Mean Corp Hgb Conc 32.9 g/gl (32-36); Mean Corpuscular Hgb 30.7 pg (27.0-32.0); Mean Corpuscular Volume 93.4 fL (80-94); Platelet Count 182 K/mm3 (150-450); RBC Distribution Width CV 15.6 % (11.6-14.6); RBC Distribution Width SD 52.5 fl (35.1-43.9); Red Blood Count 2.28 M/mm3 (4.6-6.2); Scan Indicated on CBC? Y/N NO; White Blood Count 11.7 K/mm3 (4.4-11.0)
[2018-12-07] MEDS: Rivaroxaban 10 MG Tablet PO (06:53)
[2018-12-07] MEDS: Acetaminophen 500 MG Tablet 1000 MG PO ×3 (06:53→23:27)
--- NOTE | 2018-12-07 07:48 | PCM.PROGNOTE ---
Patient Problems: Active and Suspected Problems Closed right hip fracture (Acute) Dementia (Acute) Hyperlipemia (Acute) Subjective: Postoperative day #2 All events of the past 24 hours of been reviewed. T-max is 99.5 orally. Heart rate is intermittently elevated into the 101-110 range. Current heart rate is 89. Blood pressure is normal. He is 89-92% saturated on room air. Good oral intake. Fluid balance since admission is positive for thousand 264. White blood cell count today is 11.7. Hemoglobin is 7.0 today. Platelets are within normal limits. CT brain was consistent with lacunar infarct in the deep white matter of the left parietal lobe which is the likely etiology of recent onset right upper extremity weakness. There was evidence of microvascular disease present. Objective: Physical Exam General: Alert, Cooperative, Disoriented HEENT: Atraumatic, PERRLA, Normocephalic Oral: Moist Mucosa Neck: Supple, Negative Carotid Bruits, No Nodes, No Nuchal Rigidity Lungs: mildly tachypneic at rest while eating his breakfast. + rales in the bases, no wheezing, no accessory muscle use. Cardiovascular: Regular rate, Regular Rhythm, Normal S1, Normal S2, No murmurs, No Gallop Abdomen: Bowel Sounds Present, Soft, Non Tender, Non-Distended Extremities: No clubbing, No cyanosis, No edema, Diminished Peripheral Pulses Skin: No rashes, No breakdown, - - the dressing is dry and has no blood on it Neurological: - - RUE is flacid and the RLE has suspected foot drop......difficult to examine because he does not consistently follow commands Psych/Mental Status: - - confused......answers yes or no to most questions and does not elaborate. Does not consistently follow commands - Physical Exam Vital Signs Temp Pulse Resp BP Pulse Ox 99.2 F H 89 22 H 136/76 H 96 12/07/18 03:42 12/07/18 03:42 12/07/18 03:42 12/07/18 03:42 12/07/18 03:42 Oxygen Flow Rate (L/min) 2 Oxygen Delivery Method Nasal Cannula Weight: 169 lb 8.568 oz Body Mass Index (BMI) 23.0 Intake and Output for Last 24 Hours 12/05/18 12/06/18 12/07/18 23:59 23:59 23:59 Intake Total 3234 / 3234 3439 / 3439 1626 / 1626 Output Total 900 / 900 1035 / 1035 1550 / 1550 Balance 2334 / 2334 2404 / 2404 76 / 76 Laboratory Tests Past 24 Hrs 12/06/18 12/06/18 12/06/18 08:05 08:05 08:05 WBC RBC Hgb Hct MCV MCH MCHC RDW RDW Differential Plt Count MPV Hemoglobin A1c 5.1 Phosphorus 4.3 Magnesium 2.1 Total Bilirubin 1.10 H Direct Bilirubin 0.34 H AST 23 ALT 29 Alkaline Phosphatase 61 Total Protein 5.8 L Albumin 2.5 L Globulin 3.3 Cortisol 4.70 12/07/18 06:08 WBC 11.7 H RBC 2.28 L Hgb 7.0 L Hct 21.3 L MCV 93.4 MCH 30.7 MCHC 32.9 RDW 15.6 H RDW Differential 52.5 H Plt Count 182 MPV 9.0 Hemoglobin A1c Phosphorus Magnesium Total Bilirubin Direct Bilirubin AST ALT Alkaline Phosphatase Total Protein Albumin Globulin Cortisol Medical Necessity - Tobacco Use Smoking Status: Never smoker Tobacco Use: Non-smoker Assessment/Plan All Active Problems Closed right hip fracture (Acute) Dementia (Acute) Hyperlipemia (Acute) Impressions 1. R hip fx due to a fall - S/P repair by Dr. Gaming 2. dementia - on hospice at [place] 3. Flaccid RUE - CVA in the past in the deep left parietal lobe 4. chronic steroid use - why? may be due to adrenal insufficiency - the AM cortisol was borderline low yesterday 5. HTN 6. Hyperglycemia with no dx of DM II -may be due to the dexamethasone 7. 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
[2018-12-07] MEDS: Aspirin 81 MG TAB.CHEW PO (07:55)
[2018-12-07] MEDS: Metoprolol Tartrate 25 MG Tablet PO ×2 (07:55→23:27)
[2018-12-07] MEDS: Senna/Docusate Sodium 1 Tablet PO (07:57)
[2018-12-07] MEDS: Magnesium Hydroxide 30 ML UDC PO (07:58)
[2018-12-07] MEDS: Furosemide 40 MG/4 ML Vial IV (08:05)
[2018-12-07] MEDS: 0.9% NaCl Peripheral Flush Adult/Peds IV ×2 (08:05→11:23)
--- NOTE | 2018-12-07 09:55 | CASEMGMT ---
Addendum entered by Caity Landers 12/07/18 10:27: POOJA spoke with Rubi at [facility]. Per Rubi pt's son came to [facility] yesterday and signed papers for Hospice and they are ready to follow pt at [facility] once pt is discharged from [facility]. SW informed Rubi that physician was thinking possible discharge later today. Original Note: Social Work Note Physician informed this worker pt may be able to discharge later today. SW to continue to follow along to assist with discharge planning. Caity Landers HEDGE FUND ACCOUNTANT, DEMAND MANAGER
[2018-12-07] MEDS: Cosyntropin 0.25 MG Vial IV (11:21)
--- NOTE | 2018-12-07 11:30 | NURSING ---
gave oumou at 1125, called lab for blood draw at 1155, 1225
[2018-12-07 14:12] LABS: Hematocrit 22.9 % (40-54); Hemoglobin 7.5 g/dl (13.0-16.5)
--- NOTE | 2018-12-07 14:20 | CASEMGMT ---
Social Work Note SW placed a call to Celina at [facility] and updated her that pt's hemoglobin was low this morning and that physician was getting repeat H+H today and if Hemoglobin is better pt may possibly discharge still today. Caity Landers DRY MAN, VEST MAKER
[2018-12-07 15:02] LABS: Anion Gap 12 (5-15); BUN 27 mg/dL (7-18); BUN/Creat Ratio 31.7 RATIO (10-20); Calcium,Total 7.9 mg/dL (8.5-10.1); Chloride 104 mmol/L (98-107); Creatinine, Serum 0.85 mg/dL (0.70-1.30); EST Glomerular Filtration Rate 93 mL/min (>60); Est Glom Filt Rate - Afr Amer 112 mL/min (>60); Estimated Creatinine Clearance 80.42 ml/min; Glucose 232 mg/dL (74-106); Sodium Level 140 mmol/L (136-145)
--- NOTE | 2018-12-07 15:31 | CASEMGMT ---
Social Work Note Pt is likely not discharging today. SW placed a call to Celina at [facility] and updated her that pt is not discharging today. SW placed a call to Julien at [facility] and updated her pt is not discharging today. Green sheet and transportation form on pt's chart. Plan: Pt to return to [facility] with Hospice once medically cleared Caity Landers DOOR TECHNICIAN, COMMUNITY ARTS WORKER
[2018-12-08 04:00] VITALS: BP 129/78; PULSE 71; RESP 16; TEMP 37.2; O2SAT 96
[2018-12-08] MEDS: Acetaminophen 500 MG Tablet 1000 MG PO ×2 (05:32→14:44)
[2018-12-08] MEDS: Rivaroxaban 10 MG Tablet PO (05:32)
[2018-12-08 06:59] LABS: Hemoglobin 8.1 g/dl (13.0-16.5); Mean Corp Hgb Conc 32.4 g/gl (32-36); Mean Corpuscular Hgb 30.7 pg (27.0-32.0); Mean Corpuscular Volume 94.7 fL (80-94); Platelet Count 189 K/mm3 (150-450); RBC Distribution Width CV 16.2 % (11.6-14.6); Red Blood Count 2.64 M/mm3 (4.6-6.2); White Blood Count 10.9 K/mm3 (4.4-11.0)
[2018-12-08 07:07] LABS: Scan Indicated on CBC? Y/N NO
[2018-12-08 07:44] VITALS: O2SAT 94
[2018-12-08 08:00] VITALS: BP 116/64; PULSE 91; RESP 16; TEMP 36.7; O2SAT 96
[2018-12-08 09:32] VITALS: PULSE 91
[2018-12-08] MEDS: Aspirin 81 MG TAB.CHEW PO (09:32)
[2018-12-08] MEDS: Metoprolol Tartrate 25 MG Tablet PO (09:32)
[2018-12-08 09:39] VITALS: PULSE 91; RESP 16
[2018-12-08 14:47] VITALS: BP 106/69; PULSE 86; RESP 16; TEMP 37.1; O2SAT 96
--- NOTE | 2018-12-08 16:44 | PCM.TXEXTCAR ---
- Diet 12/06/18 09:07 Diet: Regular Diet Dietary Modifications:: Mechanical Soft Diet Is pt able to select menu?: No - Routine Orders/Code Status Enema Type: Fleetz Enema Frequency: Daily PRN Suppository Type: Dulcolax 10mg Suppository Frequency: Daily PRN Routine Lab Work: - - CBC and BMP on 12/12/18 - Wound(s) rt hip Wound Type: Surgical Incision Dressing Change: Dry Sterile Dressing - Therapies Weight Bearing: Weight bearing as tolerated Extremity Affected:: Right Lower Physical Therapy: Eval and Treat Occupational Therapy: Eval and Treat - Problem/Diagnosis (1) CVA, old, monoplegia upper limb Status: Acute Comment: deep in the left parietal lobe with flaccid RUE Current Visit: Yes (2) Chronic steroid use Status: Chronic Current Visit: Yes (3) Acute blood loss anemia Status: Acute Current Visit: Yes (4) Closed right hip fracture Status: Acute Comment: due to fall Current Visit: Yes (5) Dementia Status: Chronic Current Visit: Yes (6) Hyperlipemia Status: Chronic Current Visit: Yes (7) Hypertension Status: Chronic Current Visit: Yes - Allergies/Procedures Done in Hospital Allergies/Adverse Reactions: Allergies No Known Allergies Allergy (Verified 12/04/18 08:42) Procedures: - - Right hip fracture repair by Dr. Gaming on 12/05/2018 with intramedullary rodding of the right femoral fracture - Type of Care/Length of Stay Estimated LOS: More Than 30 Days Type of Care Needed: Skilled Rehab Potential: Fair Prognosis: Fair - Additional Orders/Day of Discharge Additional Orders: Will need to follow up with Dr. Gaming in the office in 2 weeks H&P will serve as current which was dated: 12/04/18 Day of Discharge: 12/08/18 - Follow Up Care Primary Care Physician: Patrick Clarke MD [Primary Care Provider] -
--- NOTE | 2018-12-08 16:52 | DS.PCM_ITS ---
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 Hospital Course and Treatment Imaging Results: Clinical Impression(s) from Imaging Studies Chest X-Ray 12/04/18 08:54 IMPRESSION: 1. No airspace consolidation or pleural effusion. 2. Hypoinflation with mild basilar atelectasis. Vascular congestion versus artifact of portable technique/hypoinflation. Electronically Signed: German Montemayor MD at 10:11 EST , Service support , Hip/Pelvis X-Ray 12/04/18 08:56 IMPRESSION: Right intratrochanteric fracture with displacement and varus deformity. Electronically Signed: German Montemayor MD at 10:13 EST , Service support , Shoulder X-Ray 12/05/18 14:05 IMPRESSION: No suspicious acute fracture or dislocation of the right shoulder. Electronically Signed: Mark Ohara MD at 15:34 EST , Service support , Elbow X-Ray 12/05/18 14:13 IMPRESSION: No suspicious acute fracture or dislocation of the right elbow. Electronically Signed: Mark Ohara MD at 15:36 EST , Service support , Humerus X-Ray 12/05/18 14:21 IMPRESSION: No acute fracture or dislocation of the right humerus. Electronically Signed: Mark Ohara MD at 15:34 EST , Service support , Hip X-Ray 12/05/18 16:11 IMPRESSION: Status post ORIF changes of intertrochanteric fracture of the right femur with long stem intramedullary femoral rj. The intertrochanteric fracture appears in excellent alignment. Electronically Signed: Kiran Pat MD at 22:04 EST , Service support , Hip X-Ray 12/05/18 17:34 IMPRESSION: Status post ORIF changes of previously noted right intertrochanteric fracture with long stem femoral component. The intertrochanteric fracture appears in adequate alignment. There are mild degenerative changes of the left and right hips. The bony pelvis is intact. A small amount of soft tissue gas is noted in the lateral proximal thigh compatible with history of recent surgery. Electronically Signed: Kiran Pat MD at 22:07 EST , Service support , Brain CT 12/06/18 11:39 IMPRESSION: Chronic involutional changes of the brain. Electronically Signed: Wiley Mendoza MD at 13:32 EST , Service support , Laboratory Results - last 24 hr 12/08/18 06:24 WBC 10.9 RBC 2.64 L Hgb 8.1 L Hct 25.0 L MCV 94.7 H MCH 30.7 MCHC 32.4 RDW 16.2 H RDW Differential 54.0 H Plt Count [address] Navneet Gaming-orthopedics Operations: - - Repair of right hip fracture with a right hip cephalo-?medullary nail Summary of Care Provided: The patient is a 78-year-old male with a past medical history of dementia, hypertension, chronic steroid use on dexamethasone 2 mg daily and hyperlipidemia who presented to the emergency room on 12/04/2018 after a fall from bed at the [facility]. X-ray of the right hip and pelvis showed a right intertrochanteric fracture with displacement and varus deformity. X-rays of the right elbow, right humerus and right shoulder showed no fracture or dislocation. He was admitted to the hospital and Dr. Gaming was consulted for hip fracture. He was taken to surgery on 12/05/2018 and a right hip cephalo-?medullary nail was placed. On physical examination postoperatively the right upper extremity was found to be flaccid and apparently this has been chronic. The CT scan of the brain was obtained and showed a 6.1 mm lucency in the deep white matter of the left p arietal lobe secondary to prior CVA which is the likely etiology of the flaccid right upper extremity. Hemoglobin on 12/07 dropped to 7.0 and this was thought to be secondary to volume overload. He was given 40 mg of Lasix and the hemoglobin was rechecked and was 7.5. He was transfused with 1 unit of packed red blood cells and the hemoglobin at discharge is 8.1. Vital signs on the date of discharge are temperature 98.7, pulse rate 86, blood pressure 106/69, respiratory rate 16 and he was 96% saturated on room air. He was discharged back to the long term in stable condition. He will follow-up with Dr. Gaming in the office in 2 weeks. PHYSICAL EXAM: GENERAL: alert, oriented to person only, no apparent distress, only able to follow some simple commands. ORAL: moist mucosa, no mucosal lesions NECK: No JVD, supple, trachea midline LUNGS: CTA, symmetric chest expansion HEART: RRR, Normal S1 and S2, no rub, no gallop, no murmurs ABDOMEN: soft, NT, ND, BS present, no guarding with palpation EXTREMITIES: edema of the right thigh, no cyanosis, no calf tenderness, the bandages dry and there is no evidence of periwound erythema. SKIN: No rashes, no breakdown NEUROLOGIC: Flaccid right upper extremity but the neurologic exam is otherwise not focal PSYCH: Confused but pleasant This note was generated with [employer] dictation software. It may contain incorrect words, spelling, and punctuation that were not noted in checking the note before signing. - Physical Exam Vital Signs Temp Pulse Resp BP Pulse Ox 98.7 F 86 16 106/69 96 12/08/18 14:47 12/08/18 14:47 12/08/18 14:47 12/08/18 14:47 12/08/18 14:47 Oxygen Flow Rate (L/min) 2 Oxygen Delivery Method Room Air Weight: 169 lb 8.568 oz Body Mass Index (BMI) 23.0 Intake and Output for Last 24 Hours 12/06/18 12/07/18 12/08/18 23:59 23:59 23:59 Intake Total 3439 / 3439 2276 / 2276 1150 / 1150 Output Total 1035 / 1035 1550 / 1550 900 / 900 Balance 2404 / 2404 726 / 726 250 / 250 Laboratory Tests Past 24 Hrs 12/05/18 12/08/18 05:25 06:24 WBC 10.9 RBC 2.64 L Hgb 8.1 L Hct 25.0 L MCV 94.7 H MCH 30.7 MCHC 32.4 RDW 16.2 H RDW Differential 54.0 H Plt Count 189 MPV 9.0 Crossmatch See Detail Home Medications: Medications to take at Discharge Acetaminophen [Tylenol] 650 mg PO BID 12/04/18 Aspirin 81 mg PO DAILY 12/04/18 Dexamethasone 2 mg PO DAILY 12/04/18 Lorazepam [Ativan] 0.5 mg PO Q4H 12/04/18 Metoprolol Tartrate [Lopressor (beta jonathan)] 25 mg PO BID 12/04/18 Oxycodone [Oxyir] 5 mg PO Q4H PRN PRN 7 Days #28 tab 12/08/18 Rivaroxaban [Xarelto] 10 mg PO DAILY@0600 #14 tablet 12/08/18 Senna/Docusate Sodium [Senokot-S] 1 tablet PO DAILY #1 tablet 12/08/18 Following Prescrptions Were Given to Patient: Oxycodone [Oxyir] 5 mg PO Q4H PRN PRN 7 Days #28 tab PRN Reason: Severe Pain (-08/03) Primary Care Physician: Patrick Clarke MD [Primary Care Provider] - [facility]position[facility] Minutes spent on discharge:: 40 Patient Condition:: Stable Medical Necessity - Tobacco Use Smoking Status: Never smoker Tobacco Use: Non-smoker Meaningful Use Info Meaningful Use Diagnoses (Choose all that apply): None applicable Code Visit Inpatient E&M: 97572 Disch Hosp
--- NOTE | 2018-12-08 17:59 | NURSING ---
Call placed to [facility] at hospice report given/ also report given to [facility]
--- NOTE | 2018-12-09 08:04 | NURSING ---
Son in at shift change and picked up patient's clothing and dentures that were left in room at time of discharge yesterday.
== END 2018-12-08 19:13 | disposition hospice, inpatient (51) | DRG 481 ==
LOC: ED 09:50 → MS3 11:25
PROVIDERS: Specialist; Admitting Provider Internal Medicine; Emergency Provider Emergency Medicine; Family Provider Family Medicine; PCP Family Medicine; Visit Provider Internal Medicine
PROC: 0QS636Z Reposition Right Upper Femur with Intramedullary Internal Fixation Device, Percutaneous Approach (ICD-10-PCS; CPT 27245; principal; 2018-12-05 15:00)
DX: S72.141A Displaced intertrochanteric fracture of right femur, initial encounter for closed fracture (principal); F02.81 Dementia in other diseases classified elsewhere, unspecified severity, with behavioral disturbance; D62 Acute posthemorrhagic anemia; G30.9 Alzheimer's disease, unspecified; E78.5 Hyperlipidemia, unspecified; I10 Essential (primary) hypertension; I69.331 Monoplegia of upper limb following cerebral infarction affecting right dominant side; H91.90 Unspecified hearing loss, unspecified ear; Z79.52 Long term (current) use of systemic steroids; Z51.5 Encounter for palliative care; W06.XXXA Fall from bed, initial encounter; Y92.122 Bedroom in nursing home as the place of occurrence of the external cause; Z66 Do not resuscitate
CPT/HCPCS: 36415; 70450; 71045; 73030; 73060; 73070; 73502; 76000; 80048; 80076; 82533; 82962; 83036; 83735; 84100; 85014; 85018; 85025; 85027; 85610; 85730; 86850; 86900; 86920; 93005; 97162; 97166; 97530; 97535; 99251; 99285; C1713; J7030; J7040; J7120; P9016; A4216; G0463; J0834; J1940; J2405